=== PATIENT | female | born 1940 | race American Indian/Alaskan Native ===

== ENCOUNTER 2017-11-04 11:54 | Emergency (ER) | payer MEDICARE ==
[2017-11-04 14:25] LABS: INR 1.01 (0.87-1.13)
[2017-11-04 14:26] LABS: Partial Thromboplastin Time 34.4 Sec. (24.2-36.6)
[2017-11-04 14:27] LABS: Basophils % (Auto) 0.2 % (0.0-1.8); Eosinophils % (Auto) 0.4 % (0.0-4.3); Hematocrit 47.1 % (30.3-42.9); Hemoglobin 15.5 gm/dl (10.1-14.3); Lymphocytes # (Auto) 2.8 K/mm3 (1.2-5.4); Lymphocytes % (Auto) 40.2 % (13.4-35.0); Mean Corpuscular HGB Conc 33 % (30-34); Mean Corpuscular Hemoglobin 31 pg (28-32); Mean Corpuscular Volume 93 fl (79-97); Monocytes # (Auto) 0.6 K/mm3 (0.0-0.8); Monocytes % (Auto) 8.2 % (0.0-7.3); Platelet Count 173 K/mm3 (140-440); Red Blood Count 5.06 M/mm3 (3.65-5.03); Red Cell Distribution Width 13.1 % (13.2-15.2)
[2017-11-04 14:33] LABS: BUN/Creatinine Ratio 27; Blood Urea Nitrogen 27 mg/dL (7-17); Calcium 9.6 mg/dL (8.4-10.2); Hemolysis Index 8
--- NOTE | 2017-11-04 14:33 | Cat Scan Report ---
FINAL REPORT EXAM: CT HEAD/BRAIN WO CON HISTORY: neuro deficits TECHNIQUE: CT of the head was performed without intravenous contrast. PRIORS: None. FINDINGS: The ventricles are normal in shape and position. The ventricles are nondilated. No intracranial hemorrhage, mass, mass effect, midline shift or evidence of acute ischemic infarct. The basilar cisterns are patent. Moderate to severe areas of low-attenuation are seen in the periventricular and subcortical white matter. Within the right occipital and posterior temporal regions, there is a focal area of fluid attenuation with well-defined margins. There is diffuse cerebral volume loss. Small focal area of rounded low attenuation is seen in the right basal ganglia. There is mucosal thickening of the left sphenoid sinus which is likely congestive or inflammatory. The extracranial soft tissues demonstrate no abnormality. The calvarium is intact. The orbits are intact. The mastoid air cells are clear. IMPRESSION: 1. Probable encephalomalacia in the right occipital and temporal lobes from prior infarct. Acute or recent infarct or underlying mass lesion are not completely excluded. Consider further evaluation with MRI of the brain. 2. Probable old right basal ganglia lacunar infarct. 3. Moderate to severe findings of chronic microvascular ischemic disease and diffuse cerebral volume loss.
[2017-11-05 04:41] VITALS: BP 156/72
== END 2017-11-04 21:00 | disposition left against medical advice (07) ==
LOC: ED 11:54
DX: Z53.21 Procedure and treatment not carried out due to patient leaving prior to being seen by health care provider (principal)
CPT/HCPCS: 36415; 70450; 80048; 84484; 85025; 85610; 85670; 85730; 93005; 93010

== ENCOUNTER 2017-11-04 19:23 | Emergency (ER) | payer MEDICARE | END 2017-11-05 03:28 | disposition left against medical advice (07) | LOC: ED 19:23 | DX: Z53.21 Procedure and treatment not carried out due to patient leaving prior to being seen by health care provider (principal) ==

== ENCOUNTER 2018-05-02 15:34 | Emergency (ER) | payer MEDICARE ==
--- NOTE | 2018-05-02 18:34 | Emergency Department Report ---
Blank Doc - Documentation Documentation: Patient is a 69-year-old female who has a history of coronary bypass and hypertension who is here because she recently moved here from [place] and she lost her medications while on a train. The patient states she needs refills of her Zaroxolyn she has not had an approximately 1 week. Patient also needs her blood pressure medicines. Patient states she has intermittent chest discomfort that is random which is not present today. Patient also does have some urinary frequency and urgency. Patient will be given refills of her meds but before leaving will check a urinalysis to make sure that she doesn't have a urinary tract infection.
[2018-05-02 18:47] LABS: Bacteria,Urine 1+ /HPF (Negative); Bilirubin,Urine NEG (Negative); Blood,Urine NEG (Negative); Color,Urine Yellow (Yellow); Mucus,Urine FEW /HPF; Protein,Urine <15 mg/dL mg/dL (Negative); Urobilinogen,Urine < 2.0 mg/dL (<2.0)
--- NOTE | 2018-05-02 19:34 | Emergency Department Report ---
ED Recheck HPI - General Chief Complaint: Medical Clearance Stated Complaint: MEDICATION REFILL Time Seen by Provider: 05/02/18 17:18 Source: patient Mode of arrival: Ambulatory Limitations: No Limitations - History of Present Illness Initial Comments: 78-year-old female past medical history PE arms are also, hypertension presents to the ED for prescription refill. Patient states that while on a train from [place] to [place] she lost her prescriptions for Xarelto, hydrochlorothiazide and amlodipine. Patient states she was diagnosed with a PE in March 2018. Patient is awake alert and oriented 3 not in acute distress. Denies any chest pain palpitations shortness of breath nausea vomiting fever chills flank pain and dysuria hematuria. Patient informed Dr. Carpio earlier that she may have had slight increase in urinary frequency. Wanted to be evaluated for a possible UTI. Patient adamantly denies any flank pain or foul smelling urine. Patient is not in any distress. Denies any current chest pain or palpitations or shortness of breath. Denies any pleuritic chest pain. MD Complaint: medication refill request - Related Data Home Medications Medication Instructions Recorded Confirmed Last Taken ALPRAZolam [Xanax TAB] 0.25 mg PO DAILY PRN 09/17/16 09/17/16 Unknown Aspirin [Adult Low Dose Aspirin EC] 81 mg PO DAILY 09/17/16 09/17/16 Unknown HYDROcodone/APAP 5-325 1 tab PO Q6H 09/17/16 09/17/16 Unknown Hydrochlorothiazide [HCTZ] 25 mg PO QDAY 09/17/16 09/17/16 09/17/16 Lovastatin [Altoprev] 40 mg PO QPM 09/17/16 09/17/16 09/16/16 Vitamin D3 Complete Caplet 1 tab PO DAILY 09/17/16 09/17/16 09/17/16 Previous Rx's Medication Instructions Recorded Last Taken Type Hydrochlorothiazide [HCTZ] 25 mg PO QDAY #30 tablet 05/02/18 Unknown Rx Rivaroxaban [Xarelto] 20 mg PO QDAY #30 tab 05/02/18 Unknown Rx amLODIPine [Norvasc] 10 mg PO DAILY #30 tab 05/02/18 Unknown Rx Allergies Allergy/AdvReac Type Severity Reaction Status Date / Time No Known Allergies Allergy Verified 05/02/18 15:49 ED Review of Systems ROS: Stated complaint: MEDICATION REFILL Other details as noted in HPI Constitutional: denies: chills, fever Eyes: denies: eye pain, eye discharge, vision change ENT: denies: ear pain, throat pain Respiratory: other (history of PE). denies: cough, shortness of breath, wheezing Cardiovascular: denies: chest pain, palpitations Endocrine: no symptoms reported Gastrointestinal: denies: abdominal pain, nausea, diarrhea Genitourinary: denies: urgency, dysuria, discharge Musculoskeletal: denies: back pain, joint swelling, arthralgia Skin: denies: rash, lesions Neurological: denies: headache, weakness, paresthesias Psychiatric: denies: anxiety, depression Hematological/Lymphatic: denies: easy bleeding, easy bruising ED Past Medical Hx - Past Medical History Previous Medical History?: Yes Hx Hypertension: Yes Hx Psychiatric Treatment: (Anxiety) Additional medical history: Vertigo, Chest pain, Sciatic nerve pain BLOOD CLOTS - Surgical History Additional Surgical History: Heart cath 06-28-2016, - Social History Smoking Status: Never Smoker Substance Use Type: None - Medications Home Medications: Home Medications Medication Instructions Recorded Confirmed Last Taken Type ALPRAZolam [Xanax TAB] 0.25 mg PO DAILY PRN 09/17/16 09/17/16 Unknown History Aspirin [Adult Low Dose Aspirin EC] 81 mg PO DAILY 09/17/16 09/17/16 Unknown History HYDROcodone/APAP 5-325 1 tab PO Q6H 09/17/16 09/17/16 Unknown History Hydrochlorothiazide [HCTZ] 25 mg PO QDAY 09/17/16 09/17/16 09/17/16 History Lovastatin [Altoprev] 40 mg PO QPM 09/17/16 09/17/16 09/16/16 History Vitamin D3 Complete Caplet 1 tab PO DAILY 09/17/16 09/17/16 09/17/16 History Hydrochlorothiazide [HCTZ] 25 mg PO QDAY #30 tablet 05/02/18 Unknown Rx Rivaroxaban [Xarelto] 20 mg PO QDAY #30 tab 05/02/18 Unknown Rx amLODIPine [Norvasc] 10 mg PO DAILY #30 tab 05/02/18 Unknown Rx ED Physical Exam - General Limitations: No Limitations General appearance: alert, in no apparent distress - Head Head exam: Present: atraumatic, normocephalic - Eye Eye exam: Present: normal appearance, PERRL, EOMI - ENT ENT exam: Present: mucous membranes moist - Neck Neck exam: Present: normal inspection - Respiratory Respiratory exam: Present: normal lung sounds bilaterally. Absent: respiratory distress - Cardiovascular Cardiovascular Exam: Present: regular rate, normal rhythm. Absent: systolic murmur, diastolic murmur, rubs, gallop - GI/Abdominal GI/Abdominal exam: Present: soft, normal bowel sounds - Extremities Exam Extremities exam: Present: normal inspection - Back Exam Back exam: Present: normal inspection - Neurological Exam Neurological exam: Present: alert, oriented X3 - Psychiatric Psychiatric exam: Present: normal affect, normal mood - Skin Skin exam: Present: warm, dry, intact, normal color. Absent: rash ED Course Vital Signs 05/02/18 05/02/18 15:49 19:49 Temperature 98.1 F Pulse Rate 75 Respiratory 18 Rate Blood Pressure 166/104 143/93 O2 Sat by Pulse 97 Oximetry ED Recheck MDM - Differential Diagnosis Prescription Refill(s) - Medical Decision Making A/P: Urinalysis check, medication refill 1-patient informed me that she is on xarelto 20 mg daily hydrochlorothiazide 25 mg daily and amlodipine 10 mg daily. I provided patient with prescription for 30 days each of these medicines. Patient denied any other medicines at this time 2-as per my discussion with Dr. Carpio who initially evaluated the patient I followed up urinalysis. It is unremarkable with no nitrites leukocytes WBCs or bacteria. Patient states he has had increased urinary frequency for several months. I advised patient that it would be important for her to follow-up with urology and primary care. I referred her to both. Patient states she'll be in the [facility] visiting her family for approximately one month. Patient also states that she has doctors to follow-up with in [place] 3-vital signs stable for discharge. Patient has no symptoms consistent with symptomatic hypertension or active symptomatic PE at this time. Critical care attestation.: If time is entered above; I have spent that time in minutes in the direct care of this critically ill patient, excluding procedure time. ED Disposition Clinical Impression: Medication refill, Encounter for urine test Disposition: TO HOME OR SELFCARE Is pt being admited?: No Does the pt Need Aspirin: No Condition: Stable Instructions: Hydrochlorothiazide (By mouth), Amlodipine (By mouth), Rivaroxaban (By mouth) Prescriptions: amLODIPine [Norvasc] 10 mg PO DAILY #30 tab Hydrochlorothiazide [HCTZ] 25 mg PO QDAY #30 tablet Rivaroxaban [Xarelto] 20 mg PO QDAY #30 tab Referrals: [facility] [Provider Group] - 3-5 Days [facility] [Provider Group] - 3-5 Days Time of Disposition: 19:35
[2018-05-02] MEDS ORDERED: NORVASC PO ONE (19:39)
[2018-05-03 08:10] VITALS: BP 143/96
== END 2018-05-02 19:44 | disposition home or self-care (01) ==
LOC: ED 15:34
DX: Z76.0 Encounter for issue of repeat prescription (principal); I10 Essential (primary) hypertension; F41.9 Anxiety disorder, unspecified
CPT/HCPCS: 81001; 99283

== ENCOUNTER 2018-12-04 11:19 | Emergency (ER) | payer MEDICARE ==
[2018-12-04 11:32] VITALS: BP 144/99
--- NOTE | 2018-12-04 11:33 | Emergency Department Report ---
Blank Doc - Documentation Documentation: 78-year-old female that presents with dry mouth and lips. Patient also stated has some lip numbness. Patient denies any other complaints. Seems like some chopped lips Normal neuro exam. No slurred speech. Normal muscle strength. Will order labs Sent to [facility] for further evaluation and treatment
--- NOTE | 2018-12-04 12:56 | Emergency Department Report ---
ED General Adult HPI - General Chief complaint: Medical Clearance Stated complaint: NUMBNESS Time Seen by Provider: 12/04/18 11:29 Source: patient Mode of arrival: Ambulatory Limitations: No Limitations - History of Present Illness Initial comments: Patient is a 78-year-old Female who has a past medical history of hypertension as well as diabetes who is complaining of some left facial numbness. The patient states she had a stroke in 2016 and it again at 2017 has had some persistent left facial numbness but she states for the last week she feels like it slightly worse. Patient is able to drink and swallow she has no issues closing her eyes at night. Patient states her arms and legs are unaffected and there's been no slurred speech. Patient denies any headache or neck stiffness. Patient states there is no nausea vomiting diarrhea fevers or chills. - Related Data Home Medications Medication Instructions Recorded Confirmed Last Taken ALPRAZolam [Xanax TAB] 0.25 mg PO DAILY PRN 09/17/16 09/17/16 Unknown Aspirin [Adult Low Dose Aspirin EC] 81 mg PO DAILY 09/17/16 09/17/16 Unknown HYDROcodone/APAP 5-325 1 tab PO Q6H 09/17/16 09/17/16 Unknown Lovastatin [Altoprev] 40 mg PO QPM 09/17/16 09/17/16 09/16/16 Vitamin D3 Complete Caplet 1 tab PO DAILY 09/17/16 09/17/16 09/17/16 hydroCHLOROthiazide [HCTZ] 25 mg PO QDAY 09/17/16 09/17/16 09/17/16 Previous Rx's Medication Instructions Recorded Last Taken Type Rivaroxaban [Xarelto] 20 mg PO QDAY #30 tab 05/02/18 Unknown Rx amLODIPine [Norvasc] 10 mg PO DAILY #30 tab 05/02/18 Unknown Rx hydroCHLOROthiazide [HCTZ] 25 mg PO QDAY #30 tablet 05/02/18 Unknown Rx Pregabalin [Lyrica] 25 mg PO BID #30 cap 12/04/18 Unknown Rx Allergies Allergy/AdvReac Type Severity Reaction Status Date / Time No Known Allergies Allergy Verified 12/04/18 11:19 ED Review of Systems ROS: Stated complaint: NUMBNESS Other details as noted in HPI Comment: All other systems reviewed and negative ED Past Medical Hx - Past Medical History Hx Hypertension: Yes Hx Psychiatric Treatment: (Anxiety) Additional medical history: Vertigo, Chest pain, Sciatic nerve pain BLOOD CLOTS - Surgical History Additional Surgical History: Heart cath 06-28-2016, - Social History Smoking Status: Former Smoker Substance Use Type: None - Medications Home Medications: Home Medications Medication Instructions Recorded Confirmed Last Taken Type ALPRAZolam [Xanax TAB] 0.25 mg PO DAILY PRN 09/17/16 09/17/16 Unknown History Aspirin [Adult Low Dose Aspirin EC] 81 mg PO DAILY 09/17/16 09/17/16 Unknown History HYDROcodone/APAP 5-325 1 tab PO Q6H 09/17/16 09/17/16 Unknown History Lovastatin [Altoprev] 40 mg PO QPM 09/17/16 09/17/16 09/16/16 History Vitamin D3 Complete Caplet 1 tab PO DAILY 09/17/16 09/17/16 09/17/16 History hydroCHLOROthiazide [HCTZ] 25 mg PO QDAY 09/17/16 09/17/16 09/17/16 History Rivaroxaban [Xarelto] 20 mg PO QDAY #30 tab 05/02/18 Unknown Rx amLODIPine [Norvasc] 10 mg PO DAILY #30 tab 05/02/18 Unknown Rx hydroCHLOROthiazide [HCTZ] 25 mg PO QDAY #30 tablet 05/02/18 Unknown Rx Pregabalin [Lyrica] 25 mg PO BID #30 cap 12/04/18 Unknown Rx ED Physical Exam - General Limitations: No Limitations General appearance: alert, in no apparent distress - Head Head exam: Present: atraumatic, normocephalic - Eye Eye exam: Present: normal appearance - ENT ENT exam: Present: mucous membranes moist - Neck Neck exam: Present: normal inspection - Respiratory Respiratory exam: Present: normal lung sounds bilaterally. Absent: respiratory distress, wheezes, rales, rhonchi - Cardiovascular Cardiovascular Exam: Present: regular rate, normal rhythm. Absent: systolic murmur, diastolic murmur, rubs, gallop - GI/Abdominal GI/Abdominal exam: Present: soft, normal bowel sounds. Absent: distended, tenderness, guarding - Extremities Exam Extremities exam: Present: normal inspection - Back Exam Back exam: Present: normal inspection - Neurological Exam Neurological exam: Present: alert, oriented X3, CN II-XII intact (patient is able to move the eyebrows upward normally with good preservation of the forehead lines across the forehead. The patient can close his eyes tightly bilaterally her smile is symmetrical. The patient subjectively does have some mild decreased sensation to the left face.), normal gait - Psychiatric Psychiatric exam: Present: normal affect, normal mood - Skin Skin exam: Present: warm, dry, intact, normal color. Absent: rash ED Course Vital Signs 12/04/18 11:29 Temperature 97.8 F Pulse Rate 81 Respiratory 18 Rate Blood Pressure 144/99 O2 Sat by Pulse 94 Oximetry - Reevaluation(s) Reevaluation #1: 12/04/18 12:55 Patient is a 78-year-old female with a past medical history of 2 years of left facial numbness however she states it slightly worse now than previous over the last week. Patient has complete normal function of the left face. Do not see any evidence of a facial palsy from a peripheral or central origin. Electrolytes to be checked specifically her magnesium potassium levels to ensure that she does not have an electrolyte abdomen [place] causing her paresthesias the patient be reassessed. ED Medical Decision Making - Lab Data Result diagrams: 12/04/18 12:55 12/04/18 12:55 Lab Results 12/04/18 12/04/18 Range/Units 12:55 12:55 WBC 5.1 (4.5-11.0) K/mm3 RBC 4.32 (3.65-5.03) M/mm3 Hgb 13.2 (10.1-14.3) gm/dl Hct 40.8 (30.3-42.9) % MCV 95 (79-97) fl MCH 31 (28-32) pg MCHC 32 (30-34) % RDW 12.5 L (13.2-15.2) % Plt Count 166 (140-440) K/mm3 Lymph % (Auto) 27.9 (13.4-35.0) % [place] % (Auto) 7.6 H (0.0-7.3) % Eos % (Auto) 0.5 (0.0-4.3) % Baso % (Auto) 0.4 (0.0-1.8) % Lymph # 1.4 (1.2-5.4) K/mm3 [place] # 0.4 (0.0-0.8) K/mm3 Eos # 0.0 (0.0-0.4) K/mm3 Baso # 0.0 (0.0-0.1) K/mm3 Seg Neutrophils % 63.6 (40.0-70.0) % Seg Neutrophils # 3.3 (1.8-7.7) K/mm3 Sodium 145 (137-145) mmol/L Potassium 4.1 (3.6-5.0) mmol/L Chloride 106.2 (98-107) mmol/L Carbon Dioxide 26 (22-30) mmol/L Anion Gap 17 mmol/L BUN 21 H (7-17) mg/dL Creatinine 0.8 (0.7-1.2) mg/dL Estimated GFR > 60 ml/min BUN/Creatinine Ratio 26 % Glucose 85 (65-100) mg/dL Calcium 9.4 (8.4-10.2) mg/dL Magnesium 1.80 (1.7-2.3) mg/dL - Medical Decision Making Patient is a 78-year-old Female who is having slight worsening of her chronic left-sided facial numbness. Patient has a history of taking gabapentin but was taken off secondary to having some hallucinations. Patient with further questioning he does have a neurologist who is scheduling her for MRI. Because the patient has a neurologist with good follow-up and the symptoms have been present for approximately one week I did not feel as though this a CT scan in the emergency department as warranted. Patient has been discharged home to follow with her neurologist. Discussed giving the patient Lyrica which she states that she would like to try. Patient discharged in stable condition. Critical care attestation.: If time is entered above; I have spent that time in minutes in the direct care of this critically ill patient, excluding procedure time. ED Disposition Clinical Impression: Paresthesia Disposition: DC-01 TO HOME OR SELFCARE Is pt being admited?: No Does the pt Need Aspirin: No Condition: Stable Instructions: Paresthesia (ED) Prescriptions: Pregabalin [Lyrica] 25 mg PO BID #30 cap Time of Disposition: 13:48
[2018-12-04 13:06] LABS: Basophils % (Auto) 0.4 % (0.0-1.8); Eosinophils % (Auto) 0.5 % (0.0-4.3); Hematocrit 40.8 % (30.3-42.9); Hemoglobin 13.2 gm/dl (10.1-14.3); Lymphocytes # (Auto) 1.4 K/mm3 (1.2-5.4); Lymphocytes % (Auto) 27.9 % (13.4-35.0); Mean Corpuscular HGB Conc 32 % (30-34); Mean Corpuscular Volume 95 fl (79-97); Monocytes # (Auto) 0.4 K/mm3 (0.0-0.8); Monocytes % (Auto) 7.6 % (0.0-7.3); Platelet Count 166 K/mm3 (140-440); Red Blood Count 4.32 M/mm3 (3.65-5.03); Red Cell Distribution Width 12.5 % (13.2-15.2)
[2018-12-04 13:25] LABS: BUN/Creatinine Ratio 26; Blood Urea Nitrogen 21 mg/dL (7-17); Calcium 9.4 mg/dL (8.4-10.2); Hemolysis Index 18
== END 2018-12-04 14:11 | disposition home or self-care (01) ==
LOC: ED 11:19
DX: R20.0 Anesthesia of skin (principal); I10 Essential (primary) hypertension; Z87.891 Personal history of nicotine dependence; Z79.82 Long term (current) use of aspirin
CPT/HCPCS: 36415; 80048; 83735; 85025; 99283